=== PATIENT | female | born 1965 | race Caucasian/White ===

== ENCOUNTER 2017-05-27 18:00 | Observation (INO) | payer OTHER ==
[~2017-05-27] VITALS: Ht 160 cm; Wt 100.6 kg
[2017-05-27 18:20] VITALS: BP 1701/81; PULSE 86; TEMP 98.4
[2017-05-27 19:46] LABS: CALCIUM 9.3 mg/dL (8.4-10.2); CREATININE, serum 1.02 mg/dL (0.52-1.25); POTASSIUM 3.9 mmol/L (3.4-5.0)
[2017-05-27 19:52] LABS: BASO % 0.4 % (0.0-2.0); EOS # 0.1 (0.0-0.7); EOS % 0.8 % (0-4.0); GRAN # 5.1 (1.4-6.5); GRAN % 65.1 % (42.2-75.2); LYMPH # 1.8 (1.2-3.4); LYMPH % 23.3 % (20.0-51.0); MEAN CELL VOLUME 95 fl (80.0-100.0); MEAN CORPUSCULAR HGB CONC 33 g/dl (33.0-37.0); MEAN PLATELET VOLUME 10.5 fl (7.4-10.4); MONO # 0.8 (0.1-0.6); PLATELET COUNT 165 K/mm3 (130-400); RED BLOOD COUNT 3.43 M/mm3 (4.10-5.30); REDCELL DISTRIBUTION WIDTH-CV 13.2 % (11.5-14.5); WHITE BLOOD COUNT 7.8 K/mm3 (4.8-10.8)
[2017-05-27 19:53] LABS: HEMATOCRIT 32.4 % (37.0-47.0); HEMOGLOBIN 10.8 g/dl (12.5-16.0); MEAN CORPUSCULAR HEMOGLOBIN 31 pg (27.0-31.0)
[2017-05-27 20:30] VITALS: PULSE 78
[2017-05-27] MEDS ORDERED: PRINZIDE 25 MG-1 TAB PO (20:39)
[2017-05-27] MEDS ORDERED: CELEBREX 1100 MG/CAP PO (20:39)
[2017-05-27] MEDS ORDERED: ULTRAM 50MG TAB50 MG PO (20:39)
[2017-05-27] MEDS ORDERED: NEURONTIN600 MG/TAB PO (20:40)
[2017-05-27] MEDS ORDERED: TOPROL XL 25MG25 MG PO (20:43)
[2017-05-27] MEDS ORDERED: ESTRATEST H.S.1 TAB PO (20:44)
[2017-05-27] MEDS ORDERED: ZYRTEC 10MG10 MG PO (20:44)
[2017-05-27] MEDS ORDERED: AMBIEN 10MG10 MG PO (20:45)
[2017-05-27] MEDS ORDERED: PERCOCET 325 MG1 TA2 PO (20:46)
[2017-05-27 21:22] VITALS: BP 165/78; PULSE 75; TEMP 98.2
[2017-05-27 21:52] VITALS: BP 165/78; PULSE 75; TEMP 98.2
[2017-05-27 23:56] LABS: PH 5 (5-8); SQUAMOUS EPITHELIAL 0-2 /hpf; URINE APPEARANCE Hazy; URINE BACTERIA None Seen /hpf; URINE BILIRUBIN Negative (NEGATIVE); URINE BLOOD 2+ (NEGATIVE); URINE COLOR Yellow; URINE GLUCOSE Negative (NEGATIVE); URINE KETONE Negative (NEGATIVE); URINE UROBILINOGEN Negative (NEGATIVE)
[2017-05-28] VITALS (9 sets, daily range): BP systolic 98–140; BP diastolic 46–73; PULSE 69–81; TEMP 97.5–98.4
== END 2017-05-28 13:12 | disposition home or self-care (01) ==
LOC: SURG 18:00
PROVIDERS: Urology
DX: N20.1 Calculus of ureter (principal); Z90.49 Acquired absence of other specified parts of digestive tract; E78.5 Hyperlipidemia, unspecified; I10 Essential (primary) hypertension; Z98.84 Bariatric surgery status; G47.00 Insomnia, unspecified
CPT/HCPCS: C1769; C2617; G0378; G0379; J0330; J0690; J1100; J2270; J2405; J2704; J3010; J7120; Q9967

== ENCOUNTER → 2023-08-10 | Outpatient (CLI) | payer OTHER ==
[~2023-08-10] MED LIST: AMBIEN 10MG10 MG PO; CELEBREX 1100 MG/CAP PO; ESTRATEST H.S.1 TAB PO; NEURONTIN600 MG/TAB PO; PERCOCET 325 MG1 TA2 PO; PRINZIDE 25 MG-1 TAB PO; TOPROL XL 25MG25 MG PO; ULTRAM 50MG TAB50 MG PO; ZYRTEC 10MG10 MG PO
== END ==
LOC: COL.RAD 09:44
DX: R13.14 Dysphagia, pharyngoesophageal phase (principal); Z98.84 Bariatric surgery status; R09.89 Other specified symptoms and signs involving the circulatory and respiratory systems; R05.8 Other specified cough; R63.4 Abnormal weight loss